=== PATIENT | female | born 1995 | race Native Hawaiian/Other Pacific Islander ===

== ENCOUNTER 2017-02-04 15:16 | Outpatient (CLI) | payer BC | END 2017-02-04 19:10 | disposition home or self-care (01) | LOC: RAD 15:16 | DX: M25.511 Pain in right shoulder (principal) ==

== ENCOUNTER 2019-03-22 15:40 | Outpatient (CLI) | payer OTHER | END 2019-03-22 19:36 | disposition home or self-care (01) | LOC: RAD 15:40 | DX: M25.562 Pain in left knee (principal) ==

== ENCOUNTER 2019-09-05 22:05 | Emergency (ER) | payer OTHER ==
[~2019-09-05] VITALS: Ht 165.1 cm; Wt 48.5 kg
[2019-09-06 02:00] VITALS: BP 110/68; TEMP 98.6
== END 2019-09-06 02:00 | disposition home or self-care (01) ==
LOC: ED 22:14
DX: S10.83XA Contusion of other specified part of neck, initial encounter (principal); S60.221A Contusion of right hand, initial encounter; S40.012A Contusion of left shoulder, initial encounter; V47.0XXA Car driver injured in collision with fixed or stationary object in nontraffic accident, initial encounter; Y92.89 Other specified places as the place of occurrence of the external cause
CPT/HCPCS: 80320; 96374; 99284; J1885

== ENCOUNTER 2021-04-19 11:22 | Emergency (ER) | payer OTHER ==
[~2021-04-19] VITALS: Ht 165.1 cm; Wt 49.9 kg
[2021-04-19 16:53] VITALS: BP 112/59; TEMP 99.1
== END 2021-04-19 17:00 | disposition home or self-care (01) ==
LOC: ED 11:22
DX: S00.83XA Contusion of other part of head, initial encounter (principal); F11.90 Opioid use, unspecified, uncomplicated; F12.90 Cannabis use, unspecified, uncomplicated; W01.0XXA Fall on same level from slipping, tripping and stumbling without subsequent striking against object, initial encounter; Y92.218 Other school as the place of occurrence of the external cause
CPT/HCPCS: 80307; 80320; 99283